=== PATIENT | female | born 1955 | race Caucasian/White ===

== ENCOUNTER 2019-12-18 10:08 | Inpatient (IN) | payer OTHER ==
[~2019-12-18] VITALS: Ht 157.5 cm; Wt 78.0 kg
[2019-12-28] MEDS ORDERED: DIOVAN160 M1 PO (14:53)
[2019-12-28] MEDS ORDERED: GLIPIZIDE XL10 MG PO (14:54)
[2019-12-28] MEDS ORDERED: ZANTAC150 MG PO (14:54)
[2019-12-28] MEDS ORDERED: CELEXA20 MG PO (14:55)
[2019-12-28] MEDS ORDERED: CLONAZEPAM1 M1 PO (14:55)
[2020-01-02] MEDS ORDERED: RANITIDINE HCL300 MG PO (08:16)
== END 2020-01-04 20:39 | disposition home or self-care (01) | DRG 331 ==
LOC: SURH 01-02 05:05 → O/R 01-02 05:05 → SURH 01-02 11:33 → EDBD 01-02 13:15 → SURG 01-02 13:15 → SURH 01-04 20:39
PROVIDERS: ADMIT Colon & Rectal Surgery
PROC: 0DBN4ZZ Excision of Sigmoid Colon, Percutaneous Endoscopic Approach (ICD-10-PCS; 2020-01-02)
PROC: 0DJD8ZZ Inspection of Lower Intestinal Tract, Via Natural or Artificial Opening Endoscopic (ICD-10-PCS; 2020-01-02)
PROC: 0DBP4ZZ Excision of Rectum, Percutaneous Endoscopic Approach (ICD-10-PCS; principal; 2020-01-02 14:00)
DX: K57.30 Diverticulosis of large intestine without perforation or abscess without bleeding (principal); E11.9 Type 2 diabetes mellitus without complications; I11.9 Hypertensive heart disease without heart failure; F41.8 Other specified anxiety disorders

== ENCOUNTER 2021-02-21 06:15 | Day surgery (SDC) | payer OTHER ==
[~2021-02-21 06:15] MED LIST: CELEXA20 MG PO; CLONAZEPAM1 M1 PO; DIOVAN160 M1 PO; GLIPIZIDE XL10 MG PO; RANITIDINE HCL300 MG PO; ZANTAC150 MG PO
== END 2021-02-21 10:10 | disposition home or self-care (01) ==
LOC: AMB-ENDOS 06:15
PROVIDERS: ATTEND Colon & Rectal Surgery
DX: K63.5 Polyp of colon (principal); K64.0 First degree hemorrhoids; Z20.822 Contact with and (suspected) exposure to COVID-19